=== PATIENT | female | born 1970 | race Two or more races ===

== ENCOUNTER 2016-11-01 17:32 | Emergency (ER) | payer OTHER ==
--- NOTE | 2016-11-01 18:48 | RAD ---
11/01/2016 6:44 PM CHEST - 2 VIEWS History: Cough and fever for 4 days. Comparison: None Findings: Two views of the chest are obtained. The lungs are clear with out effusion or pneumothorax. The cardiomediastinal silhouette is unremarkable.. The osseous structures are intact.. IMPRESSION: No acute intrathoracic process.
[2016-11-01] MEDS ORDERED: IBUPROFEN 600 MG TABLET ONE (19:18)
[2016-11-01] MEDS ORDERED: ACETAMINOPHEN 325 MG TABLET ONE (19:18)
== END 2016-11-01 19:27 | disposition home or self-care (01) ==
LOC: ED 17:32
DX: J09.X2 Influenza due to identified novel influenza A virus with other respiratory manifestations (principal)
CPT/HCPCS: 71020; 87804; 99283 ×2; A9270 ×2